=== PATIENT | male | born 1945 | race Caucasian/White ===

== ENCOUNTER 2020-04-03 05:43 | Day surgery (SDC) | payer MEDICARE ==
[2020-03-26 12:52] LABS: BASOPHILS % (AUTO) 0.6 % (0-1); EOSINOPHILS # (AUTO) 0.4 X10'3 (0-0.9); EOSINOPHILS % (AUTO) 6.7 % (0-6); LYMPHOCYTES # (AUTO) 1.5 X10'3 (1.1-4.8); LYMPHOCYTES % (AUTO) 27.8 % (21-51); MEAN CORPUSCULAR HEMOGLOBIN 33.6 PG (27.0-31.0); MEAN CORPUSCULAR VOLUME 101.7 FL (78-98); MEAN PLATELET VOLUME 9.4 FL (7.4-10.4); MONOCYTES # (AUTO) 0.6 X10'3 (0-0.9); MONOCYTES % (AUTO) 11.2 % (2-12); NEUTROPHILS # (AUTO) 2.8 X10'3 (1.8-7.7); NEUTROPHILS % (AUTO) 53.7 % (42-75); PRE OP HEMATOCRIT 43.9 % (42.0-52.0); PRE OP HEMOGLOBIN 14.5 g/dL (14.0-17.9); PRE OP PLATELET COUNT 170 X10'3 (140-440); RED BLOOD COUNT 4.31 X10'6 (4.70-6.10); RED CELL DISTRIBUTION WIDTH 13.5 % (11.5-14.5)
[2020-03-26 13:07] LABS: ALBUMIN 3.8 G/DL (3.4-5.0); ALBUMIN/GLOBULIN RATIO 1.2 (1.1-1.5); ALKALINE PHOSPHATASE 77 IU/L (46-116); BLOOD UREA NITROGEN 14 MG/DL (7-18); BUN/CREATININE RATIO 17.1 (5.4-32.0); CALCIUM 9.1 MG/DL (8.5-10.1); CHLORIDE 103 MMOL/L (99-107); CREATININE 0.82 MG/DL (0.60-1.10); PRE OP ALT 39 U/L (30-65); PRE OP ANION GAP 9 (8-16); PRE OP AST 31 U/L (10-37); PRE OP BILIRUB, TOTAL 0.5 MG/DL (0.0-1.0); PRE OP GLUCOSE 89 MG/DL (70-104); PRE OP POTASSIUM 4.3 MMOL/L (3.4-5.1); PRE OP SODIUM 140 MMOL/L (135-145); TOTAL CARBON DIOXIDE 28.3 MMOL/L (24-32); TOTAL PROTEIN 6.9 G/DL (6.4-8.2); eGFR > 90 ML/MIN
[2020-04-03] VITALS (9 sets, daily range): BP systolic 133–143; BP diastolic 60–78
[~2020-04-03] VITALS: Ht 180.3 cm; Wt 80.6 kg
[~2020-04-03 05:43] MED LIST: ASCO-134 PO; VITA-268 PO; cefazolin/dext.iso 2gm/50ml 50 ML IV ONE; famotidine 20mg tablet PO ONE; ringers solution, lacted 1,000 ML IV SCH
[2020-04-03] MEDS ORDERED: LIDOcaine 1% (10mg/ml) 2ml vial ONE (06:28)
[2020-04-03] MEDS ORDERED: ringers solution, lacted 1,000 ML IV SCH (07:18)
[2020-04-03] MEDS ORDERED: morphine 4 MG/ML inj SYRINge IV PRN (07:20)
[2020-04-03] MEDS ORDERED: morphine 2 MG/ML inj. syringe IV PRN (07:20)
[2020-04-03] MEDS ORDERED: fentaNYL/PF 50MCG/1 ML 2ML syringe IV PRN ×2 (07:20)
[2020-04-03] MEDS ORDERED: hydrALAZINE 20mg/ml inj. IV PRN (07:20)
[2020-04-03] MEDS ORDERED: ondansetron/PF 4mg/2ml inj IV PRN (07:20)
[2020-04-03] MEDS ORDERED: labetalol 20mg/4ml (5mg/ml) syringe IV PRN (07:20)
[2020-04-03] MEDS ORDERED: LIDOcaine 0.5% (5mg/ml) 50ml vial ONE (07:21)
[2020-04-03] MEDS ORDERED: fentaNYL/PF 50MCG/1 ML 2ML syringe ONE ×2 (08:18→08:40)
[2020-04-03] MEDS ORDERED: MIDAZolam 5mg/5ml vial ONE ×2 (08:18→08:40)
[2020-04-03] MEDS ORDERED: BUPIVAcaine/PF 2.5mg/ml (0.25%) 10ml vial ONE (08:36)
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
== END 2020-04-03 10:14 | disposition home or self-care (01) ==
LOC: PAS 05:43
PROVIDERS: ATTEND Orthopaedic Surgery Hand Surgery
DX: M72.0 Palmar fascial fibromatosis [Dupuytren] (principal); Z98.890 Other specified postprocedural states; Z85.828 Personal history of other malignant neoplasm of skin; Z79.899 Other long term (current) drug therapy; Z88.5 Allergy status to narcotic agent; Z87.891 Personal history of nicotine dependence; Z72.89 Other problems related to lifestyle; Z11.59 Encounter for screening for other viral diseases
CPT/HCPCS: 26123; 26125; 36415; 80053; 82948; 85025; 93005; A6222; J2001; J2250; J3010; J3490; U0003; A4215; A6449; A7000; J7120

== ENCOUNTER 2022-08-14 06:56 | Emergency (ER) | payer MEDICARE ==
[~2022-08-14] VITALS: Ht 175.3 cm; Wt 77.0 kg
[~2022-08-14 06:56] MED LIST changes: -cefazolin/dext.iso 2gm/50ml 50 ML IV ONE; -famotidine 20mg tablet PO ONE; -ringers solution, lacted 1,000 ML IV SCH
[2022-08-14 06:57] VITALS: BP 195/83
== END 2022-08-14 18:47 | disposition home or self-care (01) ==
LOC: ER 06:56
DX: R51.9 Headache, unspecified (principal); Z88.5 Allergy status to narcotic agent
CPT/HCPCS: 70450; 99284

== ENCOUNTER 2025-10-04 05:00 | Inpatient (IN) | payer MEDICARE, OTHER ==
[~2025-10-04] VITALS: Ht 180.3 cm; Wt 78.0 kg
[2025-10-04 03:40] VITALS: BP 154/68; PULSE 75; RESP 16; TEMP 97.8; O2SAT 98
--- NOTE | 2025-10-04 06:16 | RADIOLOGY REPORT ---
CLINICAL INDICATION: pain and swelling TECHNIQUE: DI HAND, COMPLETE (3VW MIN) Comparison: None FINDINGS/IMPRESSION: : There is no evidence of acute fracture or dislocation. Moderate dorsal soft tissue swelling. Soft tissues are otherwise unremarkable.
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
[2025-10-04] MEDS: ketorolac trometh 15mg/ml vial 15 MG/ML ML IV ONE ×2 (07:47→12:17)
[2025-10-04 07:49] LABS: MEAN PLATELET VOLUME 8.6 FL (7.4-10.4); RED CELL DISTRIBUTION WIDTH 14.1 % (11.5-14.5)
[2025-10-04 08:08] LABS: CREATININE 0.73 MG/DL (0.60-1.10); TOTAL CARBON DIOXIDE 24.7 MMOL/L (24-32); eCRCL 86 ML/MIN; eGFR > 90 ML/MIN
[2025-10-04 08:11] LABS: LYMPHOCYTES % (MANUAL) 5.0 % (21-51); MONOCYTES % (MANUAL) 1.0 % (2-12); NEUTROPHILS % (MANUAL) 94.0 % (42-75)
[2025-10-04 08:12] LABS: PLATELET ESTIMATE NORMAL
[2025-10-04 12:17] LABS: LYMPHOCYTES,BODY FLUID 1 %; MONOCYTES,BODY FLUID 8 %; NEUTROPHILS,BODY FLUID 91 %
[2025-10-04 12:18] LABS: BFAPPEAR CLOUDY; BFCOLOR AMBER; BFSOURCE OTHER; BFVOLUME 1 ML
[2025-10-04 12:23] LABS: BF RBC COUNT 26500 /CU MM
[2025-10-04 12:24] LABS: BFSOURCE OTHER; BODY FLUID CRYSTALS QT NONE SEEN (NONE SEEN); CRYSTAL ID, BODY FLD NONE SEEN (NONE SEEN)
[2025-10-04] MEDS ORDERED: potassium Cl 20 mEq SR tablet PO PRN ×2 (14:55)
[2025-10-04] MEDS ORDERED: magnesium Cl slow-release 64mg tablet PO PRN (14:55)
[2025-10-04] MEDS ORDERED: potassium Cl 40MEQ/1/2NS 520ml 520 ML IV PRN (14:55)
[2025-10-04] MEDS ORDERED: magnesium hydroxide 30ml (MOM) UD suspension PO PRN (14:55)
[2025-10-04] MEDS ORDERED: ondansetron/PF 4mg/2ml inj IV PRN (14:55)
[2025-10-04] MEDS ORDERED: morphine 4 MG/ML inj SYRINge IV PRN (14:55)
[2025-10-04] MEDS ORDERED: mag hydrox/Alum hydrox/simeth 30ml oral suspension PO PRN (14:55)
[2025-10-04] MEDS ORDERED: magnesium sulf-water 2g/50mL 50 ML IV PRN (14:55)
[2025-10-04] MEDS ORDERED: magnesium sulf-water 4G/100mL 100 ML IV PRN (14:55)
[2025-10-04] MEDS ORDERED: piperacillin/tazo 4.5gm/100ml 100 ML IV SCH (16:00)
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
[2025-10-04 17:28] VITALS: RESP 16; O2SAT 98
[2025-10-04] MEDS: HYDROcodone/acetaminophen 5mg/325mg tablet PO PRN (18:45)
[2025-10-04] MEDS: vancomycin/NS 1 GM ADD-VANTAGE 250 ML IV SCH (19:13)
[2025-10-04] MEDS: K and/or MAG REPLACEMENT MC SCH (19:20)
[2025-10-04] MEDS: heparin, porcine 5000 units/ml vial SQ SCH (19:21)
[2025-10-04] MEDS: docusate sod 100mg capsule PO SCH (19:21)
[2025-10-04 20:00] VITALS: RESP 16; O2SAT 98
[2025-10-04 22:00] VITALS: BP 112/51; PULSE 64; RESP 14; TEMP 97.4; O2SAT 97
[2025-10-05 06:00] VITALS: BP 118/55; PULSE 56; RESP 18; TEMP 98.4; O2SAT 98
[2025-10-05 06:17] LABS: MEAN PLATELET VOLUME 8.5 FL (7.4-10.4); RED CELL DISTRIBUTION WIDTH 14.2 % (11.5-14.5)
[2025-10-05 06:35] LABS: CREATININE 0.88 MG/DL (0.60-1.10); TOTAL CARBON DIOXIDE 29.1 MMOL/L (24-32); eCRCL 71 ML/MIN; eGFR 83 ML/MIN
[2025-10-05 09:17] VITALS: RESP 18; O2SAT 98
[2025-10-05 10:00] VITALS: BP 151/54; PULSE 65; RESP 18; TEMP 98.5; O2SAT 97
[2025-10-05] MEDS: HYDROcodone/acetaminophen 10/325mg tab PO PRN (17:39)
--- NOTE | 2025-10-05 17:40 | PROGRESS NOTE- Residence ---
Progress Note - Resident Providers to CC Resident Creating Document: SERENA MORAN, KENJI ~ Central Line/PICC still needed: N\A Burt-Non Protocol Burt Indications Met/Not Met: F/C Indications Not Met Antibiotic Timeout Antibiotic Ordered?: Yes Subjective Patient examined bedside. He is able to move his hand better than yesterday. The swelling and the redness looks better than yesterday. Complains of pain, 5/10 well controlled with Leivasy and morphine. Objective Vital Signs Date Time Temp Pulse Resp B/P (MAP) Pulse Ox O2 Delivery O2 Flow Rate FiO2 10/05/25 12:23 18 10/05/25 10:00 98.5 65 151/54 (86) 97 Room Air 10/05/25 09:17 0.0 Result Diagram: 10/05/2544310/05/25443 General: Well alert, well oriented, not confused, not agitated, not in acute distress, well cooperated during the physical. HEENT: Conjunctive are pink, sclerae clear, no icterus, pupil is equal in both sides, reactive to light, no ear discharge, no pharyngeal erythema or an edema. Neck: Supple, no JVD, no lymphadenopathy and thyromegaly. Chest: Equal air entry on both lungs, no added sounds, no wheeze. Cardiovascular: S1-S2 regular sinus rhythm and, regular rate, no gallops, no rubs, no murmurs Abdomen: No visible peristalsis, Bowel sounds present on auscultation, soft, nontender, no guarding, no rigidity Extremities: Right hand swollen from wrist joint till 1st metacarpal joint associated with localized raise of temperature and erythema. No restriction of active and passive movements. No Creps. no pitting edema bilaterally, capillary refill intact, peripheral pulsations are intact on both sides Central Nervous System: No focal neurological deficits, no motor or sensory weakness in all 4 extremities, could move all 4 extremities, 2+ deep tendon reflexes, negative Babinski. Musculoskeletal: No joint swelling, deformities, inflammations, and no scoliosis and back tenderness Skin: Warm and dry. Counseling Services Smoking & Tobacco Cessation: N/A Advance Care Planning Advanced Care planning: N/A Plan Plan Assessment: This is an 80-year-old male who is currently being treated for an abscess with IV antibiotics. Plan: Right hand cellulitis Vitals stable no fever spikes. Patient does not meet sepsis criteria CBC normal with no leukocytosis, reason C-reactive protein from 2.27 to 9 X-ray shows soft tissue swelling without fractures. Continue vancomycin, due to Awaiting cultures taper antibiotics accordingly. Orthopedic surgeon consulted, awaiting recommendation. Code status: DNR DVT prophylaxis: Heparin 5000 subcutaneous q.8h Analgesia/sedation: Morphine/Leivasy Line/tube: PIV GI prophylaxis: None Nutrition: Regular diet PT: Ordered. Prognosis: Guarded Disposition: Admit to ortho, IV antibiotics. Serena Moran MD PGY1, Internal Medicine [facility] Date of Service: Oct 05, 2025 Billing Provider: AMINTA RAMIREZ MD Common Visit Codes: [id number] INP/OBS CARE(HIGH) SERENA MORAN, RES Oct 05, 2025 17:40 AMINTA RAMIREZ MD Oct 06, 2025 07:02
[2025-10-05 18:00] VITALS: BP 125/66; PULSE 66; RESP 15; TEMP 98.8; O2SAT 96
[2025-10-05 22:00] VITALS: BP 126/50; PULSE 61; RESP 16; TEMP 98.8; O2SAT 96
[2025-10-06] MEDS: VANCOMYCIN LEVEL IV ONE (04:26)
[2025-10-06 06:00] VITALS: BP 122/52; PULSE 54; RESP 16; TEMP 97.3; O2SAT 97
[2025-10-06 06:20] LABS: MEAN PLATELET VOLUME 8.6 FL (7.4-10.4); RED CELL DISTRIBUTION WIDTH 14.0 % (11.5-14.5)
[2025-10-06 06:31] LABS: CREATININE 0.79 MG/DL (0.60-1.10); TOTAL CARBON DIOXIDE 30.3 MMOL/L (24-32); eCRCL 79 ML/MIN; eGFR > 90 ML/MIN
[2025-10-06 08:00] VITALS: RESP 17; O2SAT 97
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
[2025-10-06 10:00] VITALS: BP 128/53; PULSE 64; RESP 14; TEMP 98.3; O2SAT 95
[2025-10-06] MEDS ORDERED: AMOX-580 PO (10:18)
[2025-10-06] MEDS ORDERED: HYDR-3965 PO (10:18)
--- NOTE | 2025-10-06 15:09 | DISCHARGE SUMMARY-Residence ---
Discharge Summary Providers to CC Resident Creating Document: BONIKENJI LOMAS ~ Discharge Summary Admission Diagnosis: Septic arthritis Hospital Course DATE OF ADMISSION: 10/04/2025 DATE OF DISCHARGE: 10/06/2025 Discharge Diagnosis\Comment: Cellulitis of right hand-subcutaneous tissue Operations\Procedures: None Consultants: None Complications: None Condition on DC: Stable New Medications: Amox Tr/Potassium Clavulanate 875/125 MG (Augmentin 875/125 MG) 875 Mg-125 Mg Tablet 1 TAB PO BID, #20 TAB Hydrocodone Bit/Acetaminophen 5/325 MG (Newton 5/325 MG) 5 Mg/325 Mg Tablet 1 TAB PO Q6H PRN for pain, #14 TAB Continued Medications: Ascorbic Acid (Ascorbic Acid) Unknown Strength Tablet Unknown Dose PO DAILY, 0 Refills Vitamin B Complex (B Complex) Unknown Strength Tablet Unknown Dose PO DAILY, 0 Refills Discharge Summary: History of present illness: This is an 80-year-old male with no significant past medical history who came with complaints of swelling in his right hand. The swelling started 2 days ago, with redness and pain which progressively worsened such that he was unable to make a fist. The swelling extended from his wrist joint to his 1st metacarpal joint, associated with tenderness. He rates the pain as a dull ache, 7/10, nonradiating, aggravated with movements and relieved with medication. He underwent drainage in the ER after which the swelling has subsided significantly, pain reduced and improved joint movements. No history of trauma. No history of fever, chills, nausea/vomiting. Hospital course: He was started on IV antibiotics, vancomycin for cellulitis of right hand. X-ray revealed soft tissue swelling without joint involvement. There was no leukocytosis, inflammatory markers were not elevated. Blood culture and wound culture did not grow any organism on day 2. Orthopedic opinion obtained to rule out septic arthritis. Patient is hemodynamically stable and symptomatically better and hence being discharged with the following instructions. Vital Signs Date Time Temp Pulse Resp B/P (MAP) Pulse Ox O2 Delivery O2 Flow Rate FiO2 10/06/25 10:00 98.3 64 14 128/53 (78) 95 Room Air 10/05/25 09:17 0.0 Laboratory Tests Test 10/04/25 19:13 10/05/25 04:44 10/05/25 10:10 10/06/25 05:34 Lactic Acid Level 1.8 MMOL/L White Blood Count 6.7 X10'3 7.0 X10'3 Red Blood Count 4.16 X10'6 4.54 X10'6 Hemoglobin 13.1 g/dl 14.3 g/dl Hematocrit 37.9 % 41.6 % Mean Corpuscular Volume 91.0 FL 91.6 FL Mean Corpuscular Hemoglobin 31.5 PG 31.5 PG Mean Corpuscular Hemoglobin Concent 34.7 g/dL 34.3 g/dL Red Cell Distribution Width 14.2 % 14.0 % Platelet Count 191 X10'3 219 X10'3 Mean Platelet Volume 8.5 FL 8.6 FL Neutrophils (%) (Auto) 55.1 % 55.1 % Lymphocytes (%) (Auto) 29.1 % 28.2 % Monocytes (%) (Auto) 12.6 % 10.5 % Eosinophils (%) (Auto) 2.7 % 5.6 % Basophils (%) (Auto) 0.5 % 0.6 % Neutrophils # (Auto) 3.7 X10'3 3.9 X10'3 Lymphocytes # (Auto) 1.9 X10'3 2.0 X10'3 Monocytes # (Auto) 0.8 X10'3 0.7 X10'3 Eosinophils # (Auto) 0.2 X10'3 0.4 X10'3 Basophils # (Auto) 0.0 X10'3 0.0 X10'3 CBC Comment Sodium Level 142 MMOL/L 142 MMOL/L Potassium Level 4.1 MMOL/L 3.9 MMOL/L Chloride Level 107 MMOL/L 106 MMOL/L Carbon Dioxide Level 29.1 MMOL/L 30.3 MMOL/L Anion Gap 6 6 Blood Urea Nitrogen 22 MG/DL 19 MG/DL Creatinine 0.88 MG/DL 0.79 MG/DL Estimated GFR/1.73 m2 83 ML/MIN > 90 ML/MIN BUN/Creatinine Ratio 25.0 24.1 Glucose Level 95 MG/DL 94 MG/DL Calcium Level 8.6 MG/DL 8.3 MG/DL Magnesium Level 2.2 MG/DL 2.2 MG/DL Total Bilirubin 0.8 MG/DL 0.5 MG/DL Aspartate Amino Transf (AST/SGOT) 11 U/L 12 U/L Alanine Aminotransferase (ALT/SGPT) 14 U/L 13 U/L Alkaline Phosphatase 63 IU/L 68 IU/L Total Protein 6.0 G/DL 6.8 G/DL Albumin 2.9 G/DL 3.1 G/DL Globulin 3.1 G/DL 3.7 G/DL Albumin/Globulin Ratio 0.9 0.8 Chemistry Comments C-Reactive Protein 9.70 MG/DL 7.39 MG/DL Vancomycin Level Trough 9.1 ug/mL Imaging: Right hand x-ray: There is no evidence of acute fracture or dislocation. Moderate dorsal soft tissue swelling. Soft tissues are otherwise unremarkable. Physical exam on discharge: General: Well alert, well oriented, not confused, not agitated, not in acute distress, well cooperated during the physical. HEENT: Conjunctive are pink, sclerae clear, no icterus, pupil is equal in both sides, reactive to light, no ear discharge, no pharyngeal erythema or an edema. Neck: Supple, no JVD, no lymphadenopathy and thyromegaly. Chest: Equal air entry on both lungs, no added sounds, no wheeze. Cardiovascular: S1-S2 regular sinus rhythm and, regular rate, no gallops, no rubs, no murmurs Abdomen: No visible peristalsis, Bowel sounds present on auscultation, soft, nontender, no guarding, no rigidity Extremities: Right hand swollen from wrist joint till 1st metacarpal joint associated. No restriction of active and passive movements. no pitting edema bilaterally, capillary refill intact, peripheral pulsations are intact on both sides Central Nervous System: No focal neurological deficits, no motor or sensory weakness in all 4 extremities, could move all 4 extremities, 2+ deep tendon reflexes, negative Babinski. Musculoskeletal: No joint swelling, deformities, inflammations, and no scoliosis and back tenderness Discharge instructions: You have been started on 2 medications. Augmentin 875 p.o. daily Newton 5 p.o. q.6h p.r.n. Follow up with your primary care provider in 2 [address] up [address] Dr. Marcos, orthopedician in 1 week Visit ER immediately in case of any acute emergencies including hand swelling, redness, discharge, excruciating pain. *Problems/Diagnosis: (1) Cellulitis and abscess of hand Status: Acute Total Time Spent on D/C: > 30 Minutes Counseling Services Smoking & Tobacco Cessation: N/A Date of Service: Oct 06, 2025 Billing Provider: AMINTA RAMIREZ MD Common Visit Codes: 09217-UHE/OBS DISCH DAY >30min ABEBE PLATA, RES Oct 06, 2025 12:28 AMINTA RAMIREZ MD Oct 07, 2025 07:38
[2025-10-06] MEDS ORDERED: vancomycin/NS 1 GM ADD-VANTAGE 250 ML IV SCH (18:00)
[2025-10-08] MEDS ORDERED: VANCOMYCIN LEVEL IV ONE (05:30)
== END 2025-10-06 10:53 | disposition home or self-care (01) | DRG 603 ==
LOC: ER 05:00 → ED HOLD 15:08 → ORTHO 4S 15:40
PROVIDERS: ADMIT Internal Medicine; ATTEND Internal Medicine
PROC: 0X9J3ZZ Drainage of Right Hand, Percutaneous Approach (ICD-10-PCS; principal; 2025-10-04)
DX: L03.113 Cellulitis of right upper limb (principal); Z66 Do not resuscitate; L02.511 Cutaneous abscess of right hand; Z79.899 Other long term (current) drug therapy
CPT/HCPCS: 36415; 73130; 80048; 80053; 80202; 83605; 83735; 84145; 84550; 85007; 85025; 85651; 86140; 87040; 87070; 87081; 89051; 89060; 99285; G0378; J1644; J1885; J3373